=== PATIENT | male | born 1985 | race Hispanic/Latino ===

== ENCOUNTER 2021-06-13 19:49 | Inpatient (IN) | payer OTHER, SELFPAY ==
[~2021-06-13] VITALS: Ht 182.9 cm; Wt 108.4 kg
[2021-06-13 19:45] VITALS: BP 145/89
[2021-06-13 20:08] VITALS: BP 152/90
[2021-06-13 20:40] LABS: ABG BASE EXCESS 2.2 mmol/L (-2.0-3.0); ABG HCO3 25.6 mmol/L (21.0-28.0); ABG OXYGEN SATURATION 89.9 % (95.0-99.0); ABG PCO2 36 mmHg (35-48)
[2021-06-13 20:46] LABS: BASOPHILS % (AUTO) 0.1 % (0.0-5.0); EOSINOPHILS % (AUTO) 0.4 % (0.0-8.0); HEMATOCRIT 39.4 % (42-54); LYMPHOCYTES % (AUTO) 14.7 % (21.0-51.0); MEAN CORPUSCULAR HEMOGLOBIN 30.1 pg (27.0-33.0); MONOCYTES % (AUTO) 10.2 % (3.0-13.0); NEUTROPHILS % (AUTO) 73.9 % (40.0-77.0); PLATELET COUNT (AUTO) 273 K/uL (130-400); RED BLOOD CELL COUNT(AUTO) 4.58 MIL/uL (4.50-6.20); RED CELL DISTRIBUTION WIDTH 11.9 % (11.0-15.5); WHITE BLOOD COUNT (AUTO) 7.2 K/uL (4.8-10.8)
[2021-06-13 21:02] VITALS: BP 132/85
[2021-06-13 21:03] LABS: ALBUMIN 2.6 g/dL (3.5-5.0); BILIRUBIN,TOTAL 0.6 mg/dL (0.2-1.0); CREATININE 1.1 mg/dL (0.5-1.5); POTASSIUM 4.3 mmol/L (3.5-5.1); TOTAL PROTEIN, SERUM 7.8 g/dL (6.0-8.3)
[2021-06-13] MEDS ORDERED: DEXAMETHASONE SOD PHOSPHATE 4 MG/ML 1ML VIAL IVP STA (21:07)
[2021-06-13 21:16] LABS: CRP QUANTITATIVE 272.7 mg/L (0.00-9.0)
[2021-06-13 21:54] VITALS: BP 142/88
[2021-06-13] MEDS ORDERED: [UNRECOGNIZED DRUG - REMARK] MISC SCH (22:00)
[2021-06-13] MEDS ORDERED: ACETAMINOPHEN 325 MG TAB PO PRN (22:00)
[2021-06-13] MEDS ORDERED: LACTATED RINGERS 1000ML 1,000 ML IV SCH (22:00)
[2021-06-13] MEDS: ALBUTEROL INHALER 90MCG/INH IH SCH (22:04)
[2021-06-13 23:35] VITALS: BP 141/85
[2021-06-14] MEDS ORDERED: ERGOCALCIFEROL (VITAMIN D2) 50,000 UNIT CAPSULE PO ONE (02:00)
[2021-06-14 04:00] VITALS: BP 151/94
[2021-06-14] MEDS: DOXYCYCLINE 100MG+NS 250ML IV SCH ×2 (04:33→12:59)
[2021-06-14] MEDS: CEFTRIAXONE 1G VIAL IVP SCH ×2 (04:33→12:59)
[2021-06-14] MEDS: ALBUTEROL INHALER 90MCG/INH IH SCH ×4 (04:59→23:28)
[2021-06-14 05:37] LABS: HEMOGLOBIN A1C 11.2 % (4.0-6.0)
[2021-06-14 05:47] LABS: ALBUMIN 2.4 g/dL (3.5-5.0); BILIRUBIN,TOTAL 0.6 mg/dL (0.2-1.0); CREATININE 0.9 mg/dL (0.5-1.5); POTASSIUM 5.2 mmol/L (3.5-5.1); TOTAL PROTEIN, SERUM 7.6 g/dL (6.0-8.3)
[2021-06-14 06:03] LABS: CRP QUANTITATIVE 311.3 mg/L (0.00-9.0)
[2021-06-14] MEDS: INSULIN HUMULIN R 100 UNIT/ML 3ML SQ SCH ×4 (06:13→20:15)
[2021-06-14] MEDS ORDERED: PHARMACY COMMUNICATION MISC SCH (07:00)
[2021-06-14 08:00] VITALS: BP 141/90
[2021-06-14] MEDS ORDERED: COMPOUND IV REFRIGERATED 1 EACH IVSOLN MISC PRN (08:00)
[2021-06-14] MEDS ORDERED: REMDESIVIR (EUA) 520 200 MG in 0.9% NACL 250ML 250 ML IV SCH (08:00)
[2021-06-14] MEDS ORDERED: ENOXAPARIN SODIUM 0.5 MG/KG EACH SQ SCH (09:00)
[2021-06-14] MEDS: ASCORBIC ACID 500 MG TAB PO SCH (10:07)
[2021-06-14] MEDS: BARICITINIB (EUA) 2 MG TABLET PO SCH (10:07)
[2021-06-14] MEDS: FAMOTIDINE 20MG TAB PO SCH (10:07)
[2021-06-14] MEDS: DEXAMETHASONE 4 MG TAB PO SCH (10:08)
[2021-06-14] MEDS: ZINC SULFATE 220 CAPSULE PO SCH (10:08)
[2021-06-14] MEDS: ENOXAPARIN SODIUM 60 MG/0.6 ML SQ SCH ×2 (10:09→20:12)
[2021-06-14 12:18] VITALS: BP 154/94
[2021-06-14] MEDS ORDERED: INSULIN GLARGINE 100 UNITS/ML 10 ML VIAL SQ SCH (13:00)
[2021-06-14 16:00] VITALS: BP 157/88
[2021-06-14] MEDS ORDERED: INSULIN HUMULIN R 100 UNIT/ML 3ML SQ SCH (17:00)
[2021-06-14 20:09] VITALS: BP 150/91
[2021-06-14] MEDS: AMLODIPINE 5 MG TAB PO SCH (20:11)
[2021-06-14 23:54] VITALS: BP 156/93
[2021-06-15] VITALS (7 sets, daily range): BP systolic 143–175; BP diastolic 83–111
[2021-06-15] MEDS: CEFTRIAXONE 1G VIAL IVP SCH ×2 (02:15→14:03)
[2021-06-15] MEDS: DOXYCYCLINE 100MG+NS 250ML IV SCH ×2 (02:15→14:04)
[2021-06-15] MEDS: ALBUTEROL INHALER 90MCG/INH IH SCH ×3 (03:40→22:00)
[2021-06-15 04:44] LABS: BASOPHILS % (AUTO) 0.2 % (0.0-5.0); EOSINOPHILS % (AUTO) 0.1 % (0.0-8.0); HEMATOCRIT 38.7 % (42-54); LYMPHOCYTES % (AUTO) 10.8 % (21.0-51.0); MEAN CORPUSCULAR HEMOGLOBIN 29.8 pg (27.0-33.0); MEAN CORPUSCULAR HGB CONC 34.6 g/dL (32.0-36.0); MONOCYTES % (AUTO) 8.7 % (3.0-13.0); PLATELET COUNT (AUTO) 370 K/uL (130-400); RED CELL DISTRIBUTION WIDTH 11.8 % (11.0-15.5); WHITE BLOOD COUNT (AUTO) 11.3 K/uL (4.8-10.8)
[2021-06-15 05:16] LABS: CREATININE 0.8 mg/dL (0.5-1.5)
[2021-06-15 05:17] LABS: ALBUMIN 2.2 g/dL (3.5-5.0); BILIRUBIN,TOTAL 0.4 mg/dL (0.2-1.0); TOTAL PROTEIN, SERUM 7.1 g/dL (6.0-8.3)
[2021-06-15 06:00] LABS: CRP QUANTITATIVE 185.4 mg/L (0.00-9.0)
[2021-06-15] MEDS: INSULIN HUMULIN R 100 UNIT/ML 3ML SQ SCH ×8 (06:50→21:52)
[2021-06-15] MEDS: ZINC SULFATE 220 CAPSULE PO SCH (08:34)
[2021-06-15] MEDS: AMLODIPINE 5 MG TAB PO SCH (08:34)
[2021-06-15] MEDS: ASCORBIC ACID 500 MG TAB PO SCH (08:34)
[2021-06-15] MEDS: FAMOTIDINE 20MG TAB PO SCH (08:34)
[2021-06-15] MEDS: BARICITINIB (EUA) 2 MG TABLET PO SCH (08:34)
[2021-06-15] MEDS: DEXAMETHASONE 4 MG TAB PO SCH (08:35)
[2021-06-15] MEDS: ENOXAPARIN SODIUM 60 MG/0.6 ML SQ SCH ×2 (08:36→21:51)
[2021-06-15] MEDS: INSULIN GLARGINE 100 UNITS/ML 10 ML VIAL SQ SCH ×2 (08:40→09:00)
[2021-06-15] MEDS: REMDESIVIR (EUA) 520 100 MG in 0.9% NACL 250ML 250 ML IV SCH (14:14)
[2021-06-16] VITALS (7 sets, daily range): BP systolic 145–165; BP diastolic 92–108
[2021-06-16] MEDS: DOXYCYCLINE 100MG+NS 250ML IV SCH ×3 (02:01→14:43)
[2021-06-16] MEDS: CEFTRIAXONE 1G VIAL IVP SCH ×2 (02:02→14:43)
[2021-06-16] MEDS: HYDRALAZINE 20MG/ML VIAL IV PRN ×2 (02:03→18:26)
[2021-06-16] MEDS: ALBUTEROL INHALER 90MCG/INH IH SCH ×3 (03:28→22:09)
[2021-06-16 04:56] LABS: BASOPHILS % (AUTO) 0.1 % (0.0-5.0); HEMATOCRIT 40.8 % (42-54); LYMPHOCYTES % (AUTO) 7.6 % (21.0-51.0); MEAN CORPUSCULAR HEMOGLOBIN 30.3 pg (27.0-33.0); MEAN CORPUSCULAR HGB CONC 34.6 g/dL (32.0-36.0); MEAN CORPUSCULAR VOLUME 87.6 fL (79-99); MONOCYTES % (AUTO) 7.8 % (3.0-13.0); NEUTROPHILS % (AUTO) 83.3 % (40.0-77.0); PLATELET COUNT (AUTO) 416 K/uL (130-400); RED BLOOD CELL COUNT(AUTO) 4.66 MIL/uL (4.50-6.20); RED CELL DISTRIBUTION WIDTH 11.9 % (11.0-15.5); WHITE BLOOD COUNT (AUTO) 15.6 K/uL (4.8-10.8)
[2021-06-16 05:22] LABS: ALBUMIN 2.3 g/dL (3.5-5.0); BILIRUBIN,TOTAL 0.3 mg/dL (0.2-1.0); CREATININE 0.8 mg/dL (0.5-1.5); CRP QUANTITATIVE 82.3 mg/L (0.00-9.0); POTASSIUM 3.6 mmol/L (3.5-5.1)
[2021-06-16] MEDS: INSULIN HUMULIN R 100 UNIT/ML 3ML SQ SCH ×6 (06:36→20:59)
[2021-06-16] MEDS: DEXAMETHASONE 4 MG TAB PO SCH (08:27)
[2021-06-16] MEDS: AMLODIPINE 5 MG TAB PO SCH (08:27)
[2021-06-16] MEDS: FAMOTIDINE 20MG TAB PO SCH (08:27)
[2021-06-16] MEDS: ENOXAPARIN SODIUM 60 MG/0.6 ML SQ SCH ×2 (08:28→20:58)
[2021-06-16] MEDS: INSULIN GLARGINE 100 UNITS/ML 10 ML VIAL SQ SCH (08:32)
[2021-06-16] MEDS: BARICITINIB (EUA) 2 MG TABLET PO SCH ×2 (09:00→16:47)
[2021-06-16] MEDS: REMDESIVIR (EUA) 520 100 MG in 0.9% NACL 250ML 250 ML IV SCH (12:52)
[2021-06-16] MEDS ORDERED: INSULIN HUMULIN R 100 UNIT/ML 3ML SQ SCH (17:00)
[2021-06-17] MEDS: CEFTRIAXONE 1G VIAL IVP SCH (02:13)
[2021-06-17] MEDS: DOXYCYCLINE 100MG+NS 250ML IV SCH (02:14)
[2021-06-17] MEDS: ALBUTEROL INHALER 90MCG/INH IH SCH ×4 (03:52→21:56)
[2021-06-17 04:08] VITALS: BP 154/91
[2021-06-17 05:06] LABS: BASOPHILS % (AUTO) 0.1 % (0.0-5.0); EOSINOPHILS % (AUTO) 0.1 % (0.0-8.0); HEMATOCRIT 38.5 % (42-54); MEAN CORPUSCULAR HEMOGLOBIN 30.2 pg (27.0-33.0); MEAN CORPUSCULAR HGB CONC 34.8 g/dL (32.0-36.0); MEAN CORPUSCULAR VOLUME 86.9 fL (79-99); MONOCYTES % (AUTO) 9.3 % (3.0-13.0); NEUTROPHILS % (AUTO) 73.6 % (40.0-77.0); PLATELET COUNT (AUTO) 418 K/uL (130-400); RED BLOOD CELL COUNT(AUTO) 4.43 MIL/uL (4.50-6.20); RED CELL DISTRIBUTION WIDTH 11.9 % (11.0-15.5); WHITE BLOOD COUNT (AUTO) 11.3 K/uL (4.8-10.8)
[2021-06-17 05:25] LABS: ALBUMIN 2.3 g/dL (3.5-5.0); BILIRUBIN,TOTAL 0.3 mg/dL (0.2-1.0); CREATININE 0.6 mg/dL (0.5-1.5); CRP QUANTITATIVE 45.6 mg/L (0.00-9.0); POTASSIUM 3.9 mmol/L (3.5-5.1); TOTAL PROTEIN, SERUM 6.1 g/dL (6.0-8.3)
[2021-06-17] MEDS: REMDESIVIR LABS MISC SCH (05:43)
[2021-06-17] MEDS: INSULIN HUMULIN R 100 UNIT/ML 3ML SQ SCH ×4 (06:26→21:50)
[2021-06-17 07:05] VITALS: BP_SYST 109; BP_SYST 138; BP_DIAS 68; BP_DIAS 81
[2021-06-17] MEDS ORDERED: INSULIN HUMULIN R 100 UNIT/ML 3ML SQ SCH ×3 (08:00→17:00)
[2021-06-17] MEDS: ENOXAPARIN SODIUM 60 MG/0.6 ML SQ SCH ×2 (08:57→21:45)
[2021-06-17] MEDS: FAMOTIDINE 20MG TAB PO SCH (08:59)
[2021-06-17] MEDS: AMLODIPINE 5 MG TAB PO SCH (08:59)
[2021-06-17] MEDS: DEXAMETHASONE 4 MG TAB PO SCH (09:00)
[2021-06-17] MEDS: BARICITINIB (EUA) 2 MG TABLET PO SCH (09:00)
[2021-06-17] MEDS: INSULIN GLARGINE 100 UNITS/ML 10 ML VIAL SQ SCH (09:02)
[2021-06-17 11:10] VITALS: BP 147/91
[2021-06-17] MEDS: REMDESIVIR (EUA) 520 100 MG in 0.9% NACL 250ML 250 ML IV SCH (13:07)
[2021-06-17 15:20] VITALS: BP 138/88
[2021-06-17 20:00] VITALS: BP 156/92
[2021-06-17 23:59] VITALS: BP 154/89
[2021-06-18 04:30] VITALS: BP 138/90
[2021-06-18] MEDS: ALBUTEROL INHALER 90MCG/INH IH SCH ×3 (04:46→16:54)
[2021-06-18] MEDS: REMDESIVIR LABS MISC SCH (06:00)
[2021-06-18] MEDS: INSULIN HUMULIN R 100 UNIT/ML 3ML SQ SCH ×3 (06:12→16:30)
[2021-06-18 06:26] LABS: HEMATOCRIT 41.7 % (42-54); MEAN CORPUSCULAR HGB CONC 33.6 g/dL (32.0-36.0); MEAN CORPUSCULAR VOLUME 89.5 fL (79-99); RED BLOOD CELL COUNT(AUTO) 4.66 MIL/uL (4.50-6.20); RED CELL DISTRIBUTION WIDTH 12.1 % (11.0-15.5); WHITE BLOOD COUNT (AUTO) 9.1 K/uL (4.8-10.8)
[2021-06-18 06:46] LABS: ALBUMIN 2.3 g/dL (3.5-5.0); BILIRUBIN,TOTAL 0.5 mg/dL (0.2-1.0); CREATININE 0.9 mg/dL (0.5-1.5); POTASSIUM 3.6 mmol/L (3.5-5.1); TOTAL PROTEIN, SERUM 6.6 g/dL (6.0-8.3)
[2021-06-18 08:00] VITALS: BP 139/75
[2021-06-18] MEDS ORDERED: INSULIN HUMULIN R 100 UNIT/ML 3ML SQ SCH ×3 (08:00→17:00)
[2021-06-18] MEDS: BARICITINIB (EUA) 2 MG TABLET PO SCH (09:31)
[2021-06-18] MEDS: FAMOTIDINE 20MG TAB PO SCH (09:31)
[2021-06-18] MEDS: DEXAMETHASONE 4 MG TAB PO SCH (09:31)
[2021-06-18] MEDS: AMLODIPINE 5 MG TAB PO SCH (09:31)
[2021-06-18] MEDS: ENOXAPARIN SODIUM 60 MG/0.6 ML SQ SCH (09:32)
[2021-06-18] MEDS: INSULIN GLARGINE 100 UNITS/ML 10 ML VIAL SQ SCH (09:38)
[2021-06-18 12:00] VITALS: BP 139/84
[2021-06-18] MEDS: REMDESIVIR (EUA) 520 100 MG in 0.9% NACL 250ML 250 ML IV SCH (14:04)
[2021-06-18] MEDS ORDERED: DEXA6TAB PO (14:38)
[2021-06-18] MEDS ORDERED: PANT40TA55 PO (14:38)
[2021-06-18] MEDS ORDERED: APIX2.5T PO (14:38)
[2021-06-18 16:00] VITALS: BP 134/87
== END 2021-06-18 18:30 | disposition home or self-care (01) | DRG 177 ==
LOC: EDH 19:49 → EDHIP 19:50 → 4AH 23:30
PROVIDERS: ADMIT Internal Medicine; ATTEND Internal Medicine
PROC: XW033E5 Introduction of Remdesivir Anti-infective into Peripheral Vein, Percutaneous Approach, New Technology Group 5 (ICD-10-PCS; principal; 2021-06-14)
PROC: XW0DXM6 Introduction of Baricitinib into Mouth and Pharynx, External Approach, New Technology Group 6 (ICD-10-PCS; 2021-06-14)
DX: U07.1 COVID-19 (principal); J96.01 Acute respiratory failure with hypoxia; J12.82 Pneumonia due to coronavirus disease 2019; D68.59 Other primary thrombophilia; E87.1 Hypo-osmolality and hyponatremia; E87.5 Hyperkalemia; I10 Essential (primary) hypertension; E11.65 Type 2 diabetes mellitus with hyperglycemia; E78.00 Pure hypercholesterolemia, unspecified; J45.909 Unspecified asthma, uncomplicated; T38.0X5A Adverse effect of glucocorticoids and synthetic analogues, initial encounter; Y92.89 Other specified places as the place of occurrence of the external cause; Z87.891 Personal history of nicotine dependence; Z56.0 Unemployment, unspecified; Z88.8 Allergy status to other drugs, medicaments and biological substances; Z90.49 Acquired absence of other specified parts of digestive tract
CPT/HCPCS: 36415; 36600; 71045; 80053; 82550; 82803; 82948; 83036; 83605; 83615; 84132; 84145; 84484; 85025; 85027; 85378; 86140; 87635; 93005; 93970; 94760; G0378; J0360; J0696; J1100; J1650; J1815; J3490; J7050; J7120; J8540

== ENCOUNTER 2023-10-22 17:40 | Inpatient (IN) | payer OTHER ==
[~2023-10-22] VITALS: Ht 180.3 cm; Wt 115.5 kg
[~2023-10-22 17:40] MED LIST: APIX2.5T PO; DEXA6TAB PO; PANT40TA55 PO
[2023-10-22] MEDS ORDERED: CLINDAMYCIN IVPB 600MG/50ML 50 ML IV SCH (20:30)
[2023-10-22 20:41] LABS: CREATININE 1.1 mg/dL (0.5-1.5)
[2023-10-22 20:43] LABS: INR 0.94 (0.85-1.15); PROTHROMBIN TIME 10.9 SEC (9.6-11.6)
[2023-10-22 20:44] LABS: PARTIAL THROMBOPLASTIN TIME 31.6 SEC (26.3-35.5)
[2023-10-22 20:45] LABS: ALBUMIN 3.4 g/dL (3.5-5.0); BILIRUBIN,TOTAL 0.3 mg/dL (0.2-1.0); TOTAL PROTEIN, SERUM 7.8 g/dL (6.0-8.3)
[2023-10-22 20:46] LABS: BASOPHILS # (AUTO) 0.08 K/uL (0.00-0.20); BASOPHILS % (AUTO) 0.7 % (0.0-5.0); EOSINOPHILS # (AUTO) 0.33 K/uL (0.00-0.70); IMMATURE GRANULOCYTE ABSOLUTE 0.05 K/uL (0-1); LYMPHOCYTES # (AUTO) 2.9 K/uL (1.0-4.8); LYMPHOCYTES % (AUTO) 26.9 % (21.0-51.0); MEAN CORPUSCULAR HEMOGLOBIN 30.2 pg (27.0-33.0); MEAN CORPUSCULAR HGB CONC 33.9 g/dL (32.0-36.0); MONOCYTES # (AUTO) 0.8 K/uL (0.1-1.0); MONOCYTES % (AUTO) 7.4 % (3.0-13.0); NEUTROPHILS # (AUTO) 6.7 K/uL (1.8-7.7); NEUTROPHILS % (AUTO) 61.5 % (40.0-77.0); PLATELET COUNT (AUTO) 305 K/uL (130-400); RED BLOOD CELL COUNT(AUTO) 4.27 MIL/uL (4.50-6.20); RED CELL DISTRIBUTION WIDTH 12.2 % (11.0-15.5); WHITE BLOOD COUNT (AUTO) 10.9 K/uL (4.8-10.8)
[2023-10-22] MEDS ORDERED: HYDRALAZINE 20MG/ML VIAL IV ONE (21:30)
[2023-10-23] MEDS: 0.9%NACL 1000ML 1,000 ML IV SCH ×3 (03:03→22:30)
[2023-10-23] MEDS: HYDROCODONE/ACETAMINOPHEN 5/325 MG TAB PO PRN ×2 (03:04→21:38)
[2023-10-23] MEDS ORDERED: ACETAMINOPHEN 325 MG TAB PO PRN ×2 (05:00)
[2023-10-23] MEDS ORDERED: ONDANSETRON 4MG INJ IV PRN (05:00)
[2023-10-23] MEDS: CLINDAMYCIN IVPB 600MG/50ML 50 ML IV SCH ×3 (06:02→21:39)
[2023-10-23 07:23] LABS: BASOPHILS # (AUTO) 0.06 K/uL (0.00-0.20); BASOPHILS % (AUTO) 0.7 % (0.0-5.0); EOSINOPHILS # (AUTO) 0.37 K/uL (0.00-0.70); EOSINOPHILS % (AUTO) 4.3 % (0.0-8.0); HEMATOCRIT 34.5 % (42-54); IMMATURE GRANULOCYTE ABSOLUTE 0.03 K/uL (0-1); LYMPHOCYTES # (AUTO) 2.8 K/uL (1.0-4.8); LYMPHOCYTES % (AUTO) 32.7 % (21.0-51.0); MEAN CORPUSCULAR HEMOGLOBIN 29.8 pg (27.0-33.0); MEAN CORPUSCULAR HGB CONC 33.9 g/dL (32.0-36.0); MEAN CORPUSCULAR VOLUME 87.8 fL (79-99); MONOCYTES # (AUTO) 0.7 K/uL (0.1-1.0); MONOCYTES % (AUTO) 8.5 % (3.0-13.0); NEUTROPHILS # (AUTO) 4.6 K/uL (1.8-7.7); NEUTROPHILS % (AUTO) 53.4 % (40.0-77.0); PLATELET COUNT (AUTO) 298 K/uL (130-400); RED BLOOD CELL COUNT(AUTO) 3.93 MIL/uL (4.50-6.20); RED CELL DISTRIBUTION WIDTH 12.3 % (11.0-15.5); WHITE BLOOD COUNT (AUTO) 8.5 K/uL (4.8-10.8)
[2023-10-23] MEDS: INSULIN HUMULIN R 100 UNIT/ML 3ML SQ SCH ×4 (07:30→21:00)
[2023-10-23 07:35] LABS: ALBUMIN 2.9 g/dL (3.5-5.0); BILIRUBIN,TOTAL 0.3 mg/dL (0.2-1.0); CREATININE 0.9 mg/dL (0.5-1.5); POTASSIUM 4.1 mmol/L (3.5-5.1); TOTAL PROTEIN, SERUM 7.4 g/dL (6.0-8.3)
[2023-10-23 12:20] LABS: APPEARANCE,URINE CLEAR (CLEAR); BILIRUBIN,URINE NEGATIVE (NEGATIVE); COLOR,URINE LIGHT-YELLOW (YELLOW); GLUCOSE, URINE (UA) NEGATIVE (NEGATIVE); KETONES,URINE NEGATIVE (NEGATIVE); LEUKOCYTE ESTERASE ,URINE NEGATIVE Leu/uL (NEGATIVE); NITRATE,URINE NEGATIVE (NEGATIVE); PROTEIN,URINE 20 mg/dL (NEGATIVE); UROBILINOGEN,URINE 0.2 mg/dL (0.2-1.0)
[2023-10-23 12:21] LABS: ADD UA MICROSCOPIC YES
[2023-10-23 12:35] LABS: MUCUS,URINE RARE LPF (None Seen); WBC,URINE 0-1 /HPF (0-1)
[2023-10-23] MEDS: FAMOTIDINE 20MG TAB PO SCH (21:38)
[2023-10-23] MEDS ORDERED: GLYB5TAB9 PO (22:31)
[2023-10-23] MEDS ORDERED: MULT-500 PO (22:31)
[2023-10-23] MEDS ORDERED: FERR-82 PO (22:31)
[2023-10-23] MEDS ORDERED: HYDR12.54 PO (22:31)
[2023-10-23] MEDS ORDERED: SEMA1PEN3 SQ (22:31)
[2023-10-23] MEDS ORDERED: OMEP20CA12 PO (22:31)
[2023-10-23 22:50] VITALS: BP 154/90; PULSE 97; RESP 18; O2SAT 98
[2023-10-24] VITALS (17 sets, daily range): BP systolic 117–172; BP diastolic 71–105; PULSE 77–91; RESP 16–20; O2SAT 97–98
[2023-10-24] MEDS: CLINDAMYCIN IVPB 600MG/50ML 50 ML IV SCH ×2 (03:54→14:08)
[2023-10-24 04:27] LABS: BASOPHILS # (AUTO) 0.06 K/uL (0.00-0.20); BASOPHILS % (AUTO) 0.7 % (0.0-5.0); EOSINOPHILS # (AUTO) 0.39 K/uL (0.00-0.70); EOSINOPHILS % (AUTO) 4.6 % (0.0-8.0); HEMATOCRIT 32.4 % (42-54); IMMATURE GRANULOCYTE ABSOLUTE 0.03 K/uL (0-1); LYMPHOCYTES % (AUTO) 35.3 % (21.0-51.0); MEAN CORPUSCULAR HEMOGLOBIN 30.1 pg (27.0-33.0); MEAN CORPUSCULAR HGB CONC 34.6 g/dL (32.0-36.0); MEAN CORPUSCULAR VOLUME 87.1 fL (79-99); MONOCYTES # (AUTO) 0.7 K/uL (0.1-1.0); MONOCYTES % (AUTO) 7.9 % (3.0-13.0); NEUTROPHILS # (AUTO) 4.3 K/uL (1.8-7.7); NEUTROPHILS % (AUTO) 51.1 % (40.0-77.0); PLATELET COUNT (AUTO) 308 K/uL (130-400); RED BLOOD CELL COUNT(AUTO) 3.72 MIL/uL (4.50-6.20); RED CELL DISTRIBUTION WIDTH 12.3 % (11.0-15.5); WHITE BLOOD COUNT (AUTO) 8.5 K/uL (4.8-10.8)
[2023-10-24 04:41] LABS: ALBUMIN 2.6 g/dL (3.5-5.0); BILIRUBIN,TOTAL 0.2 mg/dL (0.2-1.0); CREATININE 0.9 mg/dL (0.5-1.5); POTASSIUM 3.6 mmol/L (3.5-5.1); TOTAL PROTEIN, SERUM 6.9 g/dL (6.0-8.3)
[2023-10-24 05:18] LABS: % IRON SATURATION 12.1 % (30-44)
[2023-10-24] MEDS: 0.9%NACL 1000ML 1,000 ML IV SCH ×2 (05:24→21:09)
[2023-10-24 05:29] LABS: ERYTHROCYTE SEDIMENTATION RATE 55 MM/HR (0-15)
[2023-10-24] MEDS: INSULIN HUMULIN R 100 UNIT/ML 3ML SQ SCH ×4 (05:44→21:00)
[2023-10-24] MEDS: FAMOTIDINE 20MG TAB PO SCH ×2 (09:00→21:09)
[2023-10-24] MEDS ORDERED: BUPIVACAINE/PF 0.5% 30ML VIAL ONE (09:16)
[2023-10-24] MEDS ORDERED: LIDOCAINE HCL 1% 10 ML VIAL ONE ×2 (09:17→11:15)
[2023-10-24] MEDS ORDERED: 0.9%NACL 1000ML 1,000 ML IV ONE (09:37)
[2023-10-24] MEDS ORDERED: PROPOFOL 10 MG/ML 20ML VIAL IV ONE (10:07)
[2023-10-24] MEDS ORDERED: MIDAZOLAM HCL 1 MG/ML 2ML VIAL ONE (10:07)
[2023-10-24] MEDS ORDERED: KETAMINE 50MG/ML SYRINGE 50 MG/ML DISP.SYRIN ONE (10:09)
[2023-10-24] MEDS ORDERED: IRON SUCROSE COMPLEX 300 MG in 0.9% NACL 250ML 250 ML IV SCH (12:00)
[2023-10-24] MEDS: ZOSYN 3.375GM +NS 50ML IV SCH ×2 (17:53→22:20)
[2023-10-25] VITALS (7 sets, daily range): BP systolic 146–169; BP diastolic 96–110; PULSE 86–93; RESP 17–20; O2SAT 96–98
[2023-10-25] MEDS: 0.9%NACL 1000ML 1,000 ML IV SCH ×3 (03:50→23:37)
[2023-10-25 04:34] LABS: BASOPHILS # (AUTO) 0.04 K/uL (0.00-0.20); BASOPHILS % (AUTO) 0.5 % (0.0-5.0); EOSINOPHILS # (AUTO) 0.32 K/uL (0.00-0.70); EOSINOPHILS % (AUTO) 3.9 % (0.0-8.0); HEMATOCRIT 31.9 % (42-54); IMMATURE GRANULOCYTE ABSOLUTE 0.03 K/uL (0-1); LYMPHOCYTES % (AUTO) 37.5 % (21.0-51.0); MEAN CORPUSCULAR HEMOGLOBIN 30.4 pg (27.0-33.0); MEAN CORPUSCULAR HGB CONC 35.4 g/dL (32.0-36.0); MEAN CORPUSCULAR VOLUME 85.8 fL (79-99); MONOCYTES # (AUTO) 0.6 K/uL (0.1-1.0); MONOCYTES % (AUTO) 7.6 % (3.0-13.0); NEUTROPHILS # (AUTO) 4.1 K/uL (1.8-7.7); NEUTROPHILS % (AUTO) 50.1 % (40.0-77.0); PLATELET COUNT (AUTO) 315 K/uL (130-400); RED BLOOD CELL COUNT(AUTO) 3.72 MIL/uL (4.50-6.20); RED CELL DISTRIBUTION WIDTH 12.3 % (11.0-15.5); WHITE BLOOD COUNT (AUTO) 8.1 K/uL (4.8-10.8)
[2023-10-25 04:49] LABS: ALBUMIN 2.6 g/dL (3.5-5.0); BILIRUBIN,TOTAL 0.2 mg/dL (0.2-1.0); POTASSIUM 3.6 mmol/L (3.5-5.1); TOTAL PROTEIN, SERUM 6.8 g/dL (6.0-8.3)
[2023-10-25] MEDS: ZOSYN 3.375GM +NS 50ML IV SCH ×3 (06:14→22:04)
[2023-10-25] MEDS: INSULIN HUMULIN R 100 UNIT/ML 3ML SQ SCH ×4 (06:15→21:00)
[2023-10-25] MEDS ORDERED: DIPH,PERTUSS(ACELL),TET VAC/PF 0.5 ML VIAL IM ONE (07:30)
[2023-10-25] MEDS: ASPIRIN 81 MG EC TAB PO SCH (10:13)
[2023-10-25] MEDS: FAMOTIDINE 20MG TAB PO SCH ×2 (10:14→21:17)
[2023-10-25] MEDS: HYDROCHLOROTHIAZIDE 25 MG TABLET PO SCH (10:14)
[2023-10-26 01:06] VITALS: BP 140/92; PULSE 83; RESP 16
[2023-10-26 04:00] VITALS: BP 151/93; PULSE 83; RESP 18
[2023-10-26] MEDS: ZOSYN 3.375GM +NS 50ML IV SCH (05:41)
[2023-10-26 06:08] LABS: BASOPHILS # (AUTO) 0.05 K/uL (0.00-0.20); BASOPHILS % (AUTO) 0.5 % (0.0-5.0); EOSINOPHILS # (AUTO) 0.39 K/uL (0.00-0.70); EOSINOPHILS % (AUTO) 4.2 % (0.0-8.0); HEMATOCRIT 33.6 % (42-54); IMMATURE GRANULOCYTE ABSOLUTE 0.04 K/uL (0-1); LYMPHOCYTES # (AUTO) 3.4 K/uL (1.0-4.8); LYMPHOCYTES % (AUTO) 36.3 % (21.0-51.0); MEAN CORPUSCULAR HEMOGLOBIN 30.1 pg (27.0-33.0); MEAN CORPUSCULAR HGB CONC 34.8 g/dL (32.0-36.0); MEAN CORPUSCULAR VOLUME 86.4 fL (79-99); MONOCYTES # (AUTO) 0.8 K/uL (0.1-1.0); MONOCYTES % (AUTO) 8.6 % (3.0-13.0); NEUTROPHILS # (AUTO) 4.7 K/uL (1.8-7.7); PLATELET COUNT (AUTO) 348 K/uL (130-400); RED BLOOD CELL COUNT(AUTO) 3.89 MIL/uL (4.50-6.20); RED CELL DISTRIBUTION WIDTH 12.2 % (11.0-15.5); WHITE BLOOD COUNT (AUTO) 9.3 K/uL (4.8-10.8)
[2023-10-26] MEDS: INSULIN HUMULIN R 100 UNIT/ML 3ML SQ SCH ×2 (06:13→11:30)
[2023-10-26 06:32] LABS: ALBUMIN 2.8 g/dL (3.5-5.0); BILIRUBIN,TOTAL 0.2 mg/dL (0.2-1.0); POTASSIUM 3.4 mmol/L (3.5-5.1); TOTAL PROTEIN, SERUM 7.4 g/dL (6.0-8.3)
[2023-10-26] MEDS ORDERED: POTASSIUM CHLORIDE 10% ELIXIR 20 MEQ/15 ML UDCUP PO PRN (07:00)
[2023-10-26] MEDS ORDERED: POTASSIUM CHLORIDE 20MEQ/100ML 100 ML IV PRN (07:00)
[2023-10-26] MEDS ORDERED: KCL 20 MEQ ERTAB PO ONE (07:03)
[2023-10-26] MEDS: KCL 20 MEQ ERTAB PO PRN ×2 (07:41→10:05)
[2023-10-26 08:00] VITALS: BP 142/97; PULSE 83; RESP 19
[2023-10-26 08:05] VITALS: O2SAT 96
[2023-10-26] MEDS: FAMOTIDINE 20MG TAB PO SCH (10:04)
[2023-10-26] MEDS: ASPIRIN 81 MG EC TAB PO SCH (10:05)
[2023-10-26] MEDS: 0.9%NACL 1000ML 1,000 ML IV SCH (10:06)
[2023-10-26] MEDS: HYDROCHLOROTHIAZIDE 25 MG TABLET PO SCH (10:06)
[2023-10-26 12:00] VITALS: BP 153/96; PULSE 83; RESP 18
[2023-10-26] MEDS ORDERED: AMOX500T2 PO (12:41)
[2023-10-26] MEDS ORDERED: LEVO750T39 PO (12:41)
== END 2023-10-26 17:30 | disposition home or self-care (01) | DRG 256 ==
LOC: EDH 17:40 → EDHIP 17:41 → UNDOADMIN 10-23 04:44 → 4DH 10-23 22:15
PROVIDERS: ADMIT Internal Medicine; ATTEND Internal Medicine
PROC: 0Y6T0Z3 Detachment at Right 3rd Toe, Low, Open Approach (ICD-10-PCS; principal; 2023-10-24 10:09)
DX: E11.52 Type 2 diabetes mellitus with diabetic peripheral angiopathy with gangrene (principal); E44.0 Moderate protein-calorie malnutrition; M86.8X7 Other osteomyelitis, ankle and foot; E11.621 Type 2 diabetes mellitus with foot ulcer; E11.65 Type 2 diabetes mellitus with hyperglycemia; I10 Essential (primary) hypertension; E66.9 Obesity, unspecified; L97.519 Non-pressure chronic ulcer of other part of right foot with unspecified severity; E11.69 Type 2 diabetes mellitus with other specified complication; D50.9 Iron deficiency anemia, unspecified; L03.031 Cellulitis of right toe; B95.4 Other streptococcus as the cause of diseases classified elsewhere; B95.2 Enterococcus as the cause of diseases classified elsewhere; Z68.36 Body mass index [BMI] 36.0-36.9, adult; Z79.899 Other long term (current) drug therapy
CPT/HCPCS: 36415; 73630; 80053; 80061; 81001; 82550; 82948; 83036; 83540; 83550; 83605; 84145; 84484; 85025; 85610; 85651; 85730; 86140; 87040; 87070; 87076; 87077; 87088; 87186; 88305; 88311; 90715; 93925; G0378; J0360; J2250; J2543; J2704; J3490; J7030; A4216; A4222; A4223; A6446; J0665

== ENCOUNTER → 2023-11-21 | Outpatient (CLI) | payer OTHER ==
[~2023-11-21] MED LIST changes: +AMOX500T2 PO; -APIX2.5T PO; -DEXA6TAB PO; +FERR-82 PO; +GLYB5TAB9 PO; +HYDR12.54 PO; +LEVO750T39 PO; +MULT-500 PO; +OMEP20CA12 PO; -PANT40TA55 PO; +SEMA1PEN3 SQ
== END | disposition home or self-care (01) ==
LOC: WHH 08:17
PROVIDERS: ATTEND Podiatrist Foot & Ankle Surgery
DX: E11.621 Type 2 diabetes mellitus with foot ulcer (principal); L97.512 Non-pressure chronic ulcer of other part of right foot with fat layer exposed; I10 Essential (primary) hypertension; E11.51 Type 2 diabetes mellitus with diabetic peripheral angiopathy without gangrene; E11.65 Type 2 diabetes mellitus with hyperglycemia; E11.69 Type 2 diabetes mellitus with other specified complication; M86.8X7 Other osteomyelitis, ankle and foot; K21.9 Gastro-esophageal reflux disease without esophagitis; Z87.891 Personal history of nicotine dependence; Z90.49 Acquired absence of other specified parts of digestive tract; Z79.899 Other long term (current) drug therapy
CPT/HCPCS: 99215; A4450

== ENCOUNTER 2023-12-19 09:12 | Outpatient (CLI) | payer OTHER | END 2023-12-19 11:11 | disposition home or self-care (01) | LOC: WHH 09:12 | PROVIDERS: ATTEND Podiatrist Foot & Ankle Surgery | DX: E11.621 Type 2 diabetes mellitus with foot ulcer (principal); L97.518 Non-pressure chronic ulcer of other part of right foot with other specified severity; I10 Essential (primary) hypertension; E11.51 Type 2 diabetes mellitus with diabetic peripheral angiopathy without gangrene; E11.65 Type 2 diabetes mellitus with hyperglycemia; E11.69 Type 2 diabetes mellitus with other specified complication; M86.8X7 Other osteomyelitis, ankle and foot; K21.9 Gastro-esophageal reflux disease without esophagitis; Z87.891 Personal history of nicotine dependence; Z90.49 Acquired absence of other specified parts of digestive tract; Z79.899 Other long term (current) drug therapy | CPT/HCPCS: 99214; A4450 ==